=== PATIENT | female | born 1995 | race Caucasian/White ===

== ENCOUNTER 2018-07-15 00:17 | Emergency (ER) | payer BC, OTHER ==
[2018-07-15 00:39] VITALS: BP 101/76; PULSE 75; TEMP 97.6; BMI 29.7
[2018-07-15] MEDS ORDERED: IBUPROFEN 400 MG TABLET (FP) PO ONE ×2 (01:16→01:25)
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
== END 2018-07-15 02:22 | disposition home or self-care (01) ==
LOC: JER 00:17
DX: S16.1XXA Strain of muscle, fascia and tendon at neck level, initial encounter (principal); V43.62XA Car passenger injured in collision with other type car in traffic accident, initial encounter; Y92.414 Local residential or business street as the place of occurrence of the external cause; Y93.89 Activity, other specified; Y99.8 Other external cause status
CPT/HCPCS: 99282-25